=== PATIENT | female | born 1990 | race Caucasian/White ===

== ENCOUNTER 2017-06-18 13:15 | Inpatient (IN) | payer BC ==
[2017-06-18] VITALS (7 sets, daily range): BP systolic 80–109; BP diastolic 44–70
[~2017-06-18] VITALS: Ht 170.2 cm; Wt 87.8 kg
[~2017-06-18 13:15] MED LIST: ALBUTEROL0.09 MG/A4 IH; CEFTIN250 M1 PO; CIPRO 500MG TA500 MG PO; DEPO PROVER150 MG/ML IM; PEPCID 20MG TAB20 MG PO; PEPCID AC20 M1 PO; PERCOCET 325 MG1 TA2 PO; TAMIFLU 75MG75 MG PO; TUSS PO; XOPENEX 1.1.25 MG/3 IH; ZOFRAN ODT8 MG PO
[2017-06-18 13:46] LABS: HEMATOCRIT 42.4 % (37.0-47.0); HEMOGLOBIN 14.3 g/dL (12.5-16.0); MEAN CELL VOLUME 90 fl (78-100); MEAN CORPUSCULAR HEMOGLOBIN 30 pg (27-31); MEAN CORPUSCULAR HGB CONC 34 g/dL (33-37); MEAN PLATELET VOLUME 9.6 fl (7.4-10.4); PLATELET COUNT 220 K/mm3 (130-400); RED BLOOD COUNT 4.72 M/mm3 (4.10-5.30); RED CELL DISTRIBUTION WIDTH 12.5 % (11.5-14.5); WHITE BLOOD COUNT 16.9 K/mm3 (4.8-10.8)
[2017-06-18 13:58] LABS: BAND 5 % (0-10); NEUTROPHILS 76 % (42-75)
[2017-06-18 13:59] LABS: LYMPHOCYTE 10 % (20-51); MONOCYTE 9 % (3-10)
[2017-06-18 17:40] LABS: PH-URINE 5.5 (5.0 - 8.0); URINE APPEARANCE HAZY; URINE COLOR YELLOW; URINE PROTEIN(semi-quant) TRACE mg/dL (NEGATIVE)
[2017-06-18 17:41] LABS: URINE BILIRUBIN NEGATIVE (NEGATIVE); URINE BLOOD NEGATIVE (NEGATIVE); URINE GLUCOSE NEGATIVE (NEGATIVE); URINE KETONE NEGATIVE (NEGATIVE); URINE LEUKOCYTE ESTERASE TRACE (NEGATIVE); URINE NITRATE NEGATIVE (NEGATIVE); URINE UROBILINOGEN NORMAL (NORMAL)
[2017-06-19] VITALS (7 sets, daily range): BP systolic 92–158; BP diastolic 42–93
[2017-06-19 06:06] LABS: BUN/CREATININE RATIO 10.2 (6.0-26.0); CALCIUM 8.4 mg/dL (8.4-10.2); POTASSIUM 3.9 mmol/L (3.6-5.0)
[2017-06-19 06:11] LABS: HEMATOCRIT 35.9 % (37.0-47.0); HEMOGLOBIN 11.7 g/dL (12.5-16.0); MEAN CELL VOLUME 93 fl (78-100); MEAN CORPUSCULAR HEMOGLOBIN 30 pg (27-31); MEAN CORPUSCULAR HGB CONC 33 g/dL (33-37); PLATELET COUNT 194 K/mm3 (130-400); RED BLOOD COUNT 3.85 M/mm3 (4.10-5.30); RED CELL DISTRIBUTION WIDTH 12.5 % (11.5-14.5); WHITE BLOOD COUNT 11.8 K/mm3 (4.8-10.8)
[2017-06-19 06:34] LABS: LYMPHOCYTE 17 % (20-51); MONOCYTE 11 % (3-10); NEUTROPHILS 69 % (42-75)
[2017-06-20 02:55] VITALS: BP 90/69
[2017-06-20 06:37] VITALS: BP 114/77
[2017-06-20 06:48] LABS: EOS # 0.1 (0.04-0.40); EOS % 1.1 % (1.0-5.0); HEMATOCRIT 33.5 % (37.0-47.0); HEMOGLOBIN 10.7 g/dL (12.5-16.0); LYMPH# 1.5 (1.50-4.00); MEAN CELL VOLUME 94 fl (78-100); MEAN CORPUSCULAR HEMOGLOBIN 30 pg (27-31); MEAN CORPUSCULAR HGB CONC 32 g/dL (33-37); MEAN PLATELET VOLUME 9.5 fl (7.4-10.4); MONO # 1.1 (0.20-0.80); NEU # 6.8 (1.40-6.50); PLATELET COUNT 225 K/mm3 (130-400); RED BLOOD COUNT 3.55 M/mm3 (4.10-5.30); RED CELL DISTRIBUTION WIDTH 12.6 % (11.5-14.5); WHITE BLOOD COUNT 9.5 K/mm3 (4.8-10.8)
[2017-06-20 06:56] LABS: BUN/CREATININE RATIO 6.8 (6.0-26.0); CALCIUM 8.3 mg/dL (8.4-10.2)
[2017-06-20 10:55] VITALS: BP 102/60
[2017-06-20 15:02] VITALS: BP 101/58
[2017-06-20 18:37] VITALS: BP 101/56
[2017-06-20 23:38] VITALS: BP 91/51
[2017-06-21 02:37] VITALS: BP 100/60
[2017-06-21 06:27] VITALS: BP 104/60
[2017-06-21 11:01] VITALS: BP 100/68
[2017-06-21] MEDS ORDERED: CIPRO250 M1 PO (14:27)
[2017-06-21] MEDS ORDERED: CEFDINIR300 MG PO (14:27)
[2017-06-21 14:49] VITALS: BP 115/71
== END 2017-06-21 15:03 | disposition home or self-care (01) | DRG 690 ==
LOC: ED 13:15 → MED/SURG 15:39
PROVIDERS: ADMIT Physician Assistant
DX: N12 Tubulo-interstitial nephritis, not specified as acute or chronic (principal)
CPT/HCPCS: A4344; A4353; J0696; J1885; J1956; J2405; J2550; J3010; J7120

== ENCOUNTER → 2018-12-15 | Outpatient (CLI) | payer BC ==
[~2018-12-15] MED LIST changes: +CEFDINIR300 MG PO; +CIPRO250 M1 PO
== END ==
LOC: LAB 09:16
DX: J02.9 Acute pharyngitis, unspecified (principal)

== ENCOUNTER → 2020-08-25 | Outpatient (CLI) | payer BC ==
[2019-01-10 02:30] VITALS: BP 115/75
[~2020-08-25] MED LIST changes: +EPIPEN 2-PAK1 MG/ML MR
== END ==
LOC: LAB 16:33
DX: Z20.822 Contact with and (suspected) exposure to COVID-19 (principal)

== ENCOUNTER → 2021-03-09 | Outpatient (CLI) | payer BC | LOC: LAB 16:37 | DX: U07.1 COVID-19 (principal) ==

== ENCOUNTER → 2021-03-29 | Outpatient (CLI) | payer BC | LOC: LAB 09:54 | DX: R82.998 Other abnormal findings in urine (principal) ==